=== PATIENT | female | born 1990 | race Caucasian/White ===

== ENCOUNTER 2016-06-23 10:27 | Emergency (ER) | payer BC ==
[~2016-06-23] VITALS: Ht 172.7 cm; Wt 63.9 kg
[~2016-06-23 10:27] MED LIST: AMPI500C2 PO; NITR100C56 PO; ONDA4TAB7 PO; PREN1TAB60 PO; PROM12.553 PO; PROM25SU35 PR
[2016-06-23 10:37] VITALS: BP 106/74
[2016-06-23] MEDS ORDERED: SODIUM CHLORIDE 0.9% 1,000 ML IV ONE (11:25)
[2016-06-23] MEDS ORDERED: ONDANSETRON 2MG/ML, 2ML IVPush ONE (11:30)
[2016-06-23] MEDS ORDERED: SODIUM CHLORIDE 0.9% 1,000ML IVBOLUS ONE (11:30)
[2016-06-23] MEDS ORDERED: ONDANSETRON 2MG/ML, 2ML ONE (11:36)
[2016-06-23] MEDS ORDERED: MORPHINE SULFATE 4 MG/ML, 1ML ONE ×2 (11:36→13:14)
[2016-06-23] MEDS: MORPHINE SULFATE 4 MG/ML, 1ML IVPush PRN ×2 (11:40→13:16)
[2016-06-23 12:25] LABS: ASPARTATE AMINO TRANSFERASE 22 U/L (15-37); BLOOD UREA NITROGEN 12 mg/dL (7-18)
[2016-06-23] MEDS ORDERED: PROMETHAZINE 25 MG/ML, 1ML ONE (12:37)
[2016-06-23] MEDS ORDERED: PROMETHAZINE 25 MG/ML, 1ML IM ONE (13:00)
[2016-06-24] MEDS ORDERED: CYCL-259 PO (13:25)
[2016-06-24] MEDS ORDERED: PREG75CA PO (13:25)
== END 2016-06-23 14:02 | disposition home or self-care (01) ==
LOC: ED 13:54
DX: N30.00 Acute cystitis without hematuria (principal)
CPT/HCPCS: 36415; 76830; 80053; 81001; 83690; 84703; 85025; 87077; 87086; 96361; 96372; 96374; 96375; 96376; 99285; J2405; J2550; J7030; 87186

== ENCOUNTER 2016-06-24 09:46 | Inpatient (IN) | payer BC ==
[~2016-06-24] VITALS: Ht 172.7 cm; Wt 71.5 kg
[2016-06-24] MEDS ORDERED: SODIUM CHLORIDE 0.9% 1,000 ML IV ONE ×2 (10:32→13:48)
[2016-06-24] MEDS ORDERED: ONDANSETRON 2MG/ML, 2ML ONE ×2 (10:52→11:40)
[2016-06-24] MEDS ORDERED: FAMOTIDINE 20 MG/2 ML ONE (10:52)
[2016-06-24] MEDS ORDERED: MORPHINE SULFATE 4 MG/ML, 1ML ONE ×2 (10:52→15:57)
[2016-06-24] MEDS ORDERED: SODIUM CHLORIDE 0.9% 1,000ML IVBOLUS ONE (11:00)
[2016-06-24] MEDS ORDERED: FAMOTIDINE 20 MG/2 ML IVP ONE (11:00)
[2016-06-24] MEDS ORDERED: MORPHINE SULFATE 4 MG/ML, 1ML IVPush PRN (11:00)
[2016-06-24] MEDS ORDERED: ONDANSETRON 2MG/ML, 2ML IVPush ONE ×2 (11:00→12:30)
[2016-06-24 11:08] LABS: ASPARTATE AMINO TRANSFERASE 19 U/L (15-37); BLOOD UREA NITROGEN 15 mg/dL (7-18)
[2016-06-24] MEDS ORDERED: PROPOFOL 10 MG/ML, 20ML ONE (12:18)
[2016-06-24] MEDS ORDERED: DIAZEPAM 5 MG/ML, 2ML IV ONE (12:30)
[2016-06-24] MEDS ORDERED: CYCL-259 PO (13:25)
[2016-06-24] MEDS ORDERED: PREG75CA PO (13:25)
[2016-06-24] MEDS ORDERED: DIAZEPAM 5 MG/ML, 2ML ONE (13:34)
[2016-06-24] MEDS ORDERED: SODIUM CHLORIDE FLUSH 10ML SYR IVF PRN (14:00)
[2016-06-24] MEDS ORDERED: PROPOFOL 10 MG/ML, 20ML IVPush ONE (14:00)
[2016-06-24] MEDS ORDERED: hydrALAzine 20 MG/ML, 1ML IVPush PRN (14:30)
[2016-06-24] MEDS ORDERED: LORazepam 2 MG/ML, 1ML IVPush PRN (14:30)
[2016-06-24] MEDS ORDERED: DOCUSATE 100 MG CAPSULE PO PRN (14:30)
[2016-06-24] MEDS ORDERED: ACETAMINOPHEN 325 MG TABLET PO PRN (14:30)
[2016-06-24] MEDS ORDERED: MECLIZINE 12.5 MG TABLET PO PRN (15:00)
[2016-06-24] MEDS ORDERED: GADOBUTROL 7.5 MMOL/7.5 ML PFS ONE (15:13)
[2016-06-24] MEDS ORDERED: CIPROFLOXACIN/PMX 400MG/200ML 200 ML ONE (15:57)
[2016-06-24] MEDS: morphine SULFATE 10 MG/ML, 1ML IVPush PRN ×2 (16:04→18:57)
[2016-06-24] MEDS: CIPROFLOXACIN/PMX 400MG/200ML 200 ML IV SCH (16:26)
[2016-06-24 17:24] VITALS: BP 119/75
[2016-06-24] MEDS: ONDANSETRON 2MG/ML, 2ML IVPush PRN (17:59)
[2016-06-24] MEDS: ENOXAPARIN 40 MG/0.4 ML SQ SCH (18:00)
[2016-06-24 20:00] VITALS: BP 122/78
[2016-06-24] MEDS: NS + 20MEQ KCL 1,000 ML IV SCH (20:31)
[2016-06-24] MEDS: DIAZEPAM 5 MG/ML, 2ML IV PRN (20:32)
[2016-06-24] MEDS: PREGABALIN 75 MG CAPSULE PO SCH (21:00)
[2016-06-24] MEDS: CYCLOBENZAPRINE 10 MG TABLET PO SCH (21:00)
[2016-06-24] MEDS: PROMETHAZINE 25 MG/ML, 1ML IM PRN (22:08)
[2016-06-25] MEDS ORDERED: DIPHENHYDRAMINE 50 MG/ML, 1ML IVPush ONE (01:30)
[2016-06-25 02:00] VITALS: BP 122/70
[2016-06-25] MEDS ORDERED: MORPHINE SULFATE 4 MG/ML, 1ML ONE (03:15)
[2016-06-25] MEDS: morphine SULFATE 10 MG/ML, 1ML IVPush PRN ×5 (03:17→20:04)
[2016-06-25] MEDS: CIPROFLOXACIN/PMX 400MG/200ML 200 ML IV SCH ×2 (05:25→18:05)
[2016-06-25 05:38] LABS: BLOOD UREA NITROGEN 12 mg/dL (7-18)
[2016-06-25 05:39] LABS: ASPARTATE AMINO TRANSFERASE 24 U/L (15-37)
[2016-06-25] MEDS: NS + 20MEQ KCL 1,000 ML IV SCH (07:30)
[2016-06-25] MEDS: PROMETHAZINE 25 MG/ML, 1ML IM PRN ×2 (07:56→13:56)
[2016-06-25] MEDS: PREGABALIN 75 MG CAPSULE PO SCH ×2 (08:09→21:00)
[2016-06-25 08:19] VITALS: BP 114/73
[2016-06-25] MEDS: ONDANSETRON 2MG/ML, 2ML IVPush PRN ×2 (11:18→20:04)
[2016-06-25] MEDS ORDERED: KETOROLAC 30 MG/1 ML IVPush SCH ×3 (11:30→21:00)
[2016-06-25 13:59] VITALS: BP 130/80
[2016-06-25] MEDS: HALOPERIDOL 5 MG/ML IM PRN (16:04)
[2016-06-25] MEDS: ENOXAPARIN 40 MG/0.4 ML SQ SCH (18:48)
[2016-06-25 20:00] VITALS: BP 125/76
[2016-06-25 20:23] VITALS: BP 115/73
[2016-06-25] MEDS: CYCLOBENZAPRINE 10 MG TABLET PO SCH (21:00)
[2016-06-26] MEDS: NS + 20MEQ KCL 1,000 ML IV SCH ×3 (00:03→19:39)
[2016-06-26] MEDS: morphine SULFATE 10 MG/ML, 1ML IVPush PRN ×3 (00:04→14:49)
[2016-06-26] MEDS: HALOPERIDOL 5 MG/ML IM PRN (00:04)
[2016-06-26 02:00] VITALS: BP 119/76
[2016-06-26 06:25] VITALS: BP 118/74
[2016-06-26] MEDS: CIPROFLOXACIN/PMX 400MG/200ML 200 ML IV SCH ×2 (07:52→19:39)
[2016-06-26] MEDS: PREGABALIN 75 MG CAPSULE PO SCH ×2 (09:00→21:44)
[2016-06-26] MEDS: DIAZEPAM 5 MG/ML, 2ML IV PRN (10:07)
[2016-06-26] MEDS: KETOROLAC 30 MG/1 ML IVPush PRN ×2 (10:07→19:38)
[2016-06-26 13:32] VITALS: BP 106/68
[2016-06-26] MEDS: PROMETHAZINE 25 MG/ML, 1ML IM PRN (14:38)
[2016-06-26] MEDS ORDERED: METOCLOPRAMIDE 5 MG/ML, 2ML IVPush PRN (15:00)
[2016-06-26] MEDS ORDERED: KETOROLAC 30 MG/1 ML IVPush SCH (17:30)
[2016-06-26] MEDS: ENOXAPARIN 40 MG/0.4 ML SQ SCH (18:00)
[2016-06-26 19:18] VITALS: BP 102/69
[2016-06-26] MEDS: CYCLOBENZAPRINE 10 MG TABLET PO SCH (21:44)
[2016-06-26] MEDS ORDERED: DIPHENHYDRAMINE 25 MG CAPSULE PO ONE (22:00)
[2016-06-26] MEDS: HYDROcodone/APAP 5/325 TABLET PO PRN (22:21)
[2016-06-27] MEDS ORDERED: MORPHINE SULFATE 4 MG/ML, 1ML ONE (00:43)
[2016-06-27] MEDS: morphine SULFATE 10 MG/ML, 1ML IVPush PRN (00:47)
[2016-06-27 01:33] VITALS: BP 102/63
[2016-06-27] MEDS: HYDROcodone/APAP 5/325 TABLET PO PRN ×2 (03:29→09:18)
[2016-06-27 04:36] LABS: ASPARTATE AMINO TRANSFERASE 37 U/L (15-37); BLOOD UREA NITROGEN 11 mg/dL (7-18)
[2016-06-27] MEDS: NS + 20MEQ KCL 1,000 ML IV SCH (05:30)
[2016-06-27 06:31] VITALS: BP 92/59
[2016-06-27] MEDS: CIPROFLOXACIN/PMX 400MG/200ML 200 ML IV SCH (09:18)
[2016-06-27] MEDS: PREGABALIN 75 MG CAPSULE PO SCH (09:18)
[2016-06-27 12:27] VITALS: BP 99/64
[2016-06-27] MEDS ORDERED: HYDR-3240 PO (12:27)
[2016-06-27] MEDS ORDERED: CIPR250T27 PO (12:27)
[2016-06-27] MEDS ORDERED: PROM12.55 PO (12:27)
== END 2016-06-27 14:33 | disposition home or self-care (01) | DRG 690 ==
LOC: ED 11:14 → EDIP 13:48 → 4WST 17:01
PROC: 0RSJXZZ Reposition Right Shoulder Joint, External Approach (ICD-10-PCS; principal; 2016-06-24)
DX: N39.0 Urinary tract infection, site not specified (principal); R17 Unspecified jaundice; E86.0 Dehydration; M79.7 Fibromyalgia; F32.9 Major depressive disorder, single episode, unspecified; F41.9 Anxiety disorder, unspecified; F17.210 Nicotine dependence, cigarettes, uncomplicated; E87.6 Hypokalemia; G40.909 Epilepsy, unspecified, not intractable, without status epilepticus; B96.20 Unspecified Escherichia coli [E. coli] as the cause of diseases classified elsewhere; M24.411 Recurrent dislocation, right shoulder; Z88.1 Allergy status to other antibiotic agents; Z91.018 Allergy to other foods; Z80.43 Family history of malignant neoplasm of testis
CPT/HCPCS: 23650; 36415; 70553; 74176; 76700; 80053; 81001; 83690; 83735; 84100; 85025; 87040; 87077; 87086; 87186; 93005; 93306; 93880; 96361; 96374; 96375; 96376; 99152; A9585; J0744; J1650; J1885; J2405; J2550; J3360; J3480; J1200; J1630; J2270; J7030; Q0163; S0028

== ENCOUNTER 2016-08-16 18:29 | Emergency (ER) | payer BC ==
[~2016-08-16] VITALS: Ht 172.7 cm; Wt 61.9 kg
[~2016-08-16 18:29] MED LIST changes: +CIPR250T27 PO; +CYCL-259 PO; +HYDR-3240 PO; +PREG75CA PO; +PROM12.55 PO
[2016-08-16] MEDS ORDERED: ONDANSETRON 2MG/ML, 2ML IVPush ONE (19:00)
[2016-08-16] MEDS ORDERED: SODIUM CHLORIDE FLUSH 10ML SYR IVF ONE (19:00)
[2016-08-16] MEDS ORDERED: MORPHINE SULFATE 4 MG/ML, 1ML IVPush PRN (19:00)
[2016-08-16] MEDS ORDERED: SODIUM CHLORIDE 0.9% 1,000ML IVBOLUS ONE (19:00)
[2016-08-16] MEDS ORDERED: ONDANSETRON 2MG/ML, 2ML ONE (19:36)
[2016-08-16] MEDS ORDERED: MORPHINE SULFATE 4 MG/ML, 1ML ONE (19:36)
[2016-08-16 19:37] LABS: ASPARTATE AMINO TRANSFERASE 14 U/L (15-37); BLOOD UREA NITROGEN 11 mg/dL (7-18)
[2016-08-16] MEDS ORDERED: CYCL-259 PO (20:01)
[2016-08-16 21:20] VITALS: BP 110/65
[2016-08-16] MEDS ORDERED: KETOROLAC 30 MG/1 ML IVPush ONE (21:30)
== END 2016-08-16 21:22 | disposition home or self-care (01) ==
LOC: ED 21:03
DX: R10.11 Right upper quadrant pain (principal)
CPT/HCPCS: 36415; 76700; 80053; 81001; 83690; 84703; 85025; 87086; 96361; 96374; 96375; 99285; J2405; J7030